=== PATIENT | female | born 1990 | race Caucasian/White ===

== ENCOUNTER 2019-01-20 21:29 | Inpatient (IN) | payer MEDICAID ==
[~2019-01-20] VITALS: Ht 167.6 cm; Wt 69.9 kg
[2019-01-20] MEDS ORDERED: KETOROLAC 30MG/ML VIAL IV STA (23:10)
[2019-01-20] MEDS ORDERED: ACETAMINOPHEN 325MG TABLET PO STA (23:10)
[2019-01-20] MEDS ORDERED: ONDANSETRON HCL 4MG/2ML INJ IV STA (23:10)
[2019-01-20] MEDS ORDERED: CEFTRIAXONE 1 G PREMIX 50 ML IV ONE (23:15)
[2019-01-20] MEDS ORDERED: SODIUM CHLORIDE 0.9% 1000ML BAG (SEPSIS BOLUS) IV ONE (23:15)
[2019-01-20 23:33] LABS: CLARITY URINE CLEAR (CLEAR); COLOR URINE DARK YELLOW (YELLOW); KETONES URINE 4+ (NEGATIVE); LEUKOCYTE ESTERASE URINE 1+ (NEGATIVE); NITRITE URINE POSITIVE (NEGATIVE); OCCULT BLOOD URINE 2+ (NEGATIVE); PROTEIN URINE TRACE (NEGATIVE); SPECIFIC GRAVITY URINE 1.018 (1.005-1.030)
[2019-01-20 23:34] LABS: HEMATOCRIT. 36.3 % (36.0-48.0); HEMOGLOBIN. 13.1 g/dL (12.0-16.0); MEAN PLATELET VOLUME 7.9 fl (7.4-10.4); PLATELET 198 x1000/uL (130-400); RED BLOOD CELL COUNT 3.94 mill/uL (4.2-5.4); RED CELL DISTRIBUTION WIDTH 12.3 % (11.6-14.6)
[2019-01-20 23:43] LABS: PROTHROMBIN TIME 10.4 sec (9.6-11.0)
[2019-01-20 23:45] LABS: CHLORIDE 102 mEq/L (98-107)
[2019-01-20 23:54] LABS: *AMPHETAMINES SCREEN URINE NEGATIVE (NEGATIVE); *BARBITURATES SCREEN URINE NEGATIVE (NEGATIVE); *BENZODIAZEPINES SCREEN URINE NEGATIVE (NEGATIVE); *COCAINE SCREEN URINE NEGATIVE (NEGATIVE)
[2019-01-20 23:56] LABS: METHADONE URINE SCREEN NEGATIVE (NEGATIVE); OPIATES URINE SCREEN NEGATIVE (NEGATIVE); PHENCYCLIDINE URINE SCREEN NEGATIVE (NEGATIVE)
[2019-01-20 23:58] LABS: CANNABINOID URINE SCREEN PRESUMTIVE POSITIVE (NEGATIVE)
[2019-01-21 00:13] LABS: MEAN CORPUSCULAR HEMOGLOBIN 32.4 pg (28.0-32.0); MEAN CORPUSCULAR VOLUME 93.8 fL (81.0-99.0)
[2019-01-21 00:35] LABS: PLATELET ESTIMATE NORMAL
[2019-01-21] MEDS ORDERED: MORPHINE SULFATE 4 MG/ML CPJ (NOT FOR IM USE) IV ONE (03:15)
[2019-01-21] MEDS ORDERED: ACETAMINOPHEN 325MG TABLET PO PRN ×2 (08:00→09:30)
[2019-01-21] MEDS ORDERED: ONDANSETRON HCL 4MG/2ML INJ IV PRN (09:30)
[2019-01-21] MEDS ORDERED: KETOROLAC 30MG/ML VIAL IV PRN (09:30)
[2019-01-21] MEDS: SODIUM CHLORIDE 0.9% 1,000 ML IV SCH (11:21)
[2019-01-21 11:32] VITALS: BP 90/43
[2019-01-21 12:00] VITALS: BP 97/53
[2019-01-21] MEDS: KETOROLAC 15MG/ML VIAL IV PRN ×2 (14:03→20:33)
[2019-01-21 16:00] VITALS: BP 98/62
[2019-01-21 17:30] VITALS: BP 93/48
[2019-01-21 20:00] VITALS: BP 108/54
[2019-01-21] MEDS ORDERED: CEFTRIAXONE 1 G PREMIX 50 ML IV SCH (21:00)
[2019-01-22 00:17] VITALS: BP 115/55
[2019-01-22] MEDS: SODIUM CHLORIDE 0.9% 1,000 ML IV SCH (03:43)
[2019-01-22] MEDS: KETOROLAC 15MG/ML VIAL IV PRN ×2 (03:47→08:38)
[2019-01-22 04:00] VITALS: BP 100/50
[2019-01-22 06:30] LABS: CHLORIDE 108 mEq/L (98-107)
[2019-01-22 06:34] LABS: BASOPHILS % 0.3 % (0.0-2.0); EOSINOPHILS % 0.3 % (0.0-5.0); HEMATOCRIT. 36.9 % (36.0-48.0); HEMOGLOBIN. 12.7 g/dL (12.0-16.0); LYMPHOCYTES % 9.6 % (20.0-50.0); MEAN CORPUSCULAR HEMOGLOBIN 32.6 pg (28.0-32.0); MEAN CORPUSCULAR VOLUME 94.8 fL (81.0-99.0); MEAN PLATELET VOLUME 8.5 fl (7.4-10.4); MONOCYTES % 12.2 % (2.0-8.0); NEUTROPHILS % 77.6 % (40.0-76.0); PLATELET 164 x1000/uL (130-400); RED BLOOD CELL COUNT 3.89 mill/uL (4.2-5.4); RED CELL DISTRIBUTION WIDTH 12.4 % (11.6-14.6)
[2019-01-22 08:00] VITALS: BP 99/58
[2019-01-22 12:00] VITALS: BP 103/54
[2019-01-22 13:19] LABS: UCG SCREEN NEGATIVE
[2019-01-22] MEDS ORDERED: AZITHROMYCIN 500 MG TABLET PO NR (14:00)
[2019-01-22 14:54] VITALS: BP 103/54
== END 2019-01-22 15:35 | disposition home or self-care (01) | DRG 720 ==
LOC: ER 21:29 → 5EST 01-21 01:51 → EDBEDREQTM 01-21 01:55 → EDBEDREQDT 01-21 01:55 → EDBEDREQ 01-21 01:55 → ENRESERV 01-21 07:00 → 5EST 01-21 10:32 → 8WST 01-21 17:05
PROVIDERS: ADMIT Internal Medicine; ATTEND Internal Medicine
DX: A41.9 Sepsis, unspecified organism (principal); E87.1 Hypo-osmolality and hyponatremia; N39.0 Urinary tract infection, site not specified; F12.90 Cannabis use, unspecified, uncomplicated; Z79.899 Other long term (current) drug therapy
CPT/HCPCS: 36415; 71045; 74176; 80048; 80305; 81025; 83605; 84145; 84484; 93970; 99291; J0696; J1885; J2270; J2405; J7030